=== PATIENT | female | born 1990 | race Caucasian/White ===

== ENCOUNTER 2018-09-26 15:25 | Emergency (ER) | payer BC, OTHER ==
[~2018-09-26] VITALS: Ht 160 cm; Wt 68.0 kg
[~2018-09-26 15:25] MED LIST: ACHD5005 PO; ACHYD1T PO; CPH250CIP PO; DCS100C PO; FERR-57 PO; FERR325T18 PO; FRS325T PO; IBP600T1 PO; IBUP-1773 PO; PREN1TAB71 PO; PREN1TAB86 PO
[2018-09-26] MEDS ORDERED: SULF-222 (15:32)
[2018-09-26] MEDS ORDERED: ESCI10TA55 (15:32)
--- OUTSIDE RECORDS SUMMARY | 2018-09-26 15:43 | XMS REPORT | Continuity of Care Document ---
Author Organization Unknown Address Unknown Allergies Active Description Code Type Severity Reaction Onset Reported/Identified Relationship to Patient Clinical Status Yes Penicillins [id number] Drug Allergy Unknown N/A 10/26/2012 Medications There is no data. Problems Date Dx Coded Attending Type Code Diagnosis Diagnosed By 10/26/2012 LIZZY RAYGOZA DO Ot 599.0 URIN TRACT INFECTION NOS 10/26/2012 LIZZY RAYGOZA DO Ot 646.63 INFECTION-ANTEPARTUM 10/30/2012 VILLA KOHLER DO Ot 285.1 AC POSTHEMORRHAG ANEMIA 10/30/2012 VILLA KOHLER DO, Ot 599.0 URIN TRACT INFECTION NOS 10/30/2012 VILLA KOHLER DO Ot 646.62 INFECTION-DELIV W P/P 10/30/2012 VILLA KOHLER DO Ot 648.22 ANEMIA-DELIVERED W P/P 10/30/2012 VILLA KOHLER DO Ot 659.71 ABN DEL FET HT RT/RHYTHM,W OR W/O MENTIO 10/30/2012 VILLA KOHLER DO Ot V27.0 DELIVER-SINGLE LIVEBORN 08/10/2015 VILLA KOHLER DO Ot D62 ACUTE POSTHEMORRHAGIC ANEMIA 08/10/2015 VILLA KOHLER DO Ot O34.21 MATERNAL CARE FOR SCAR FROM PREVIOUS SHONDA 08/10/2015 VILLA KOHLER DO Ot O90.81 ANEMIA OF THE PUERPERIUM 08/10/2015 VILLA KOHLER DO Ot Z23 ENCOUNTER FOR IMMUNIZATION 08/10/2015 VILLA KOHLER DO, Ot Z37.0 SINGLE LIVE 08/10/2015 VILLA KOHLER DO, Ot Z3A.38 38 WEEKS GESTATION OF Procedures Code Description Performed By Performed On 74.1 10/29/2012 [id number] 08/08/2015 [id number] 08/08/2015 Results There is no data. Encounters ACCT No. Visit Date/Time Discharge Status Pt. Type Provider Facility Loc./Unit Complaint [id number] 09/22/2018 17:10:00 09/22/2018 23:59:59 CLS Outpatient JOSTIN DAMON [facility] [id number] 08/08/2015 14:00:00 08/10/2015 13:15:00 DIS [facility] [id number] 10/28/2012 11:49:00 10/30/2012 15:50:00 DIS Inpatient VILLA KOHLER DO [facility] [id number] 10/26/2012 19:49:00 10/26/2012 22:00:00 DIS Outpatient [facility]
--- OUTSIDE RECORDS SUMMARY | 2018-09-26 15:43 | XMS REPORT | Continuity of Care Document ---
Author Author [facility] Organization [facility] Address Unknown Phone Unavailable Support Name Relationship Address Phone JEANETTE LYNN Next Of Kin [address] [facility] [place] [id number] Insurance Providers Payer Name Policy Number Subscriber Name Relationship [facility] [id number] Rhonda Lynn 01 Self / Same As Patient Medicaid [place] [id number] Rhonda Lynn 01 Self / Same As Patient Advance Directives Directive Response Recorded Date Advance Directives N 10/28/12 11:55am Health Care Power of Integration Solution Architect N 10/26/12 8:00pm Organ Donor Y 10/28/12 11:55am Problems No Known Problems or Medical conditions. Family History History Response Recorded Date/Time Hx Family Cancer N 10/28/12 1:18pm Hx Family Cardiac Disorders N 10/28/12 1:18pm Social History History Response Recorded Date/Time Alcohol Use Denies Use 10/28/12 1:16pm Recreational Drug Use N 10/28/12 1:16pm Recent Foreign Travel N 10/28/12 1:16pm Recent Infectious Disease Exposure N 10/28/12 1:16pm Hospitalization with Isolation Denies 10/30/12 6:06pm Sexually Transmitted Disease N 10/28/12 12:31pm Allergies, Adverse Reactions, Alerts Allergen Type Severity Reaction Last Updated Penicillins Allergy Unknown 10/26/12 Medications Medication Dose Units Route Sig Qty Days Docusate Sodium (Colace Cap) 100 Mg PO BID 60 Ferrous Sulfate (Feosol Tab) 325 Mg PO DAILY@0700 30 Ibuprofen (Motrin) 600 Mg PO Q6H PRN 40 Acetaminophen/Hydrocodone Bitart (Lorcet Plus 10/325 Mg) 1 Ea PO Q6HR PRN 30 Cephalexin Hcl (Keflex Capsule) 500 Mg PO QID 7 Ferrous Sulfate 325 Mg PO BID Vit/Fe Fumarate/Fa ( Vitamin Tablet) 1 Each PO DAILY Immunizations Name Given Type Date of Influenza Vaccine 12/27/11 H Response Recorded Date/Time Status not known Unknown Results Test Date Result Interp. Ref. Range Basophils # (Auto) October 28, 2012 12:25pm 0.0 10^3/uL N 0.0-0.1 Basophils (%) (Auto) October 28, 2012 12:25pm 0 % N 0-10 Eosinophils # (Auto) October 28, 2012 12:25pm 0.1 10^3/uL N 0.0-0.3 Eosinophils (%) (Auto) October 28, 2012 12:25pm 1 % N 0-10 Hematocrit October 28, 2012 12:25pm 38 % N 35-52 Hemoglobin October 28, 2012 12:25pm 12.9 G/DL N 11.5-16.0 Lymphocytes # (Auto) October 28, 2012 12:25pm 1.6 X 10^3 N 1.0-4.0 Lymphocytes (%) (Auto) October 28, 2012 12:25pm 8 % L 12-44 Mean Corpuscular Hemoglobin October 28, 2012 12:25pm 29 PG N 25-34 Mean Corpuscular Hemoglobin Concent October 28, 2012 12:25pm 34 G/DL N 32-36 Mean Corpuscular Volume October 28, 2012 12:25pm 84 FL N 80-99 Mean Platelet Volume October 28, 2012 12:25pm 11.6 FL H 7.4-10.4 Monocytes # (Auto) October 28, 2012 12:25pm 0.8 X 10^3 N 0.0-1.0 Monocytes (%) (Auto) October 28, 2012 12:25pm 4 % N 0-12 Neutrophils # (Auto) October 28, 2012 12:25pm 17.4 X 10^3 H 1.8-7.8 Neutrophils (%) (Auto) October 28, 2012 12:25pm 87 % H 42-75 Platelet Count October 28, 2012 12:25pm 268 10^3/uL N 130-400 Red Blood Count October 28, 2012 12:25pm 4.48 10^6/uL N 4.35-5.85 Red Cell Distribution Width October 28, 2012 12:25pm 13.4 % N 10.0-14.5 Urine Bacteria October 26, 2012 7:50pm LARGE /HPF H - Urine Bilirubin October 26, 2012 7:50pm NEGATIVE - Urine Casts October 26, 2012 7:50pm NONE /LPF - Urine Clarity October 26, 2012 7:50pm SLIGHTLY CLOUDY - Urine Color October 26, 2012 7:50pm YELLOW - Urine Crystals October 26, 2012 7:50pm NONE /LPF - Urine Culture Indicated October 26, 2012 7:50pm YES - Urine Glucose (UA) October 26, 2012 7:50pm NEGATIVE - Urine Ketones October 26, 2012 7:50pm NEGATIVE - Urine Leukocyte Esterase October 26, 2012 7:50pm 3+ H - Urine Mucus October 26, 2012 7:50pm NEGATIVE /LPF - Urine Nitrite October 26, 2012 7:50pm NEGATIVE - Urine Protein October 26, 2012 7:50pm NEGATIVE - Urine RBC October 26, 2012 7:50pm 0-2 /HPF - Urine Specific [place] October 26, 2012 7:50pm 1.010 L - Urine Urobilinogen October 26, 2012 7:50pm NORMAL MG/DL - Urine WBC October 26, 2012 7:50pm 50-100 /HPF H - Urine pH October 26, 2012 7:50pm 8 - White Blood Count October 28, 2012 12:25pm 19.9 10^3/uL H 4.3-11.0 Urine RBC (Auto) October 26, 2012 7:50pm 3+ H - Procedures Procedure Code Date Urine Culture 10/26/12 Encounters Encounter Location Date/Time Discharged Inpatient [facility] 10/28/12 11:49am
--- NOTE | 2018-09-26 16:01 | ED Integumentary General ---
General Chief Complaint: Skin/Wound Problems Stated Complaint: LT AXILLARY ABSCESS Nursing Triage Note: C/O redness under R arm over the weekend. reports going to urgent care on friday of this week and getting put on Bactrim DS. Source: patient Exam Limitations: no limitations History of Present Illness Date Seen by Provider: Sep 26, 2018 Time Seen by Provider: 15:59 Initial Comments Patient complains of tender red warm left axillary mass for the past week. She saw her doctor who prescribed Bactrim on Friday. It is only gotten worse. She has some drainage (yellow-green) from the area. He also has a low-grade fever. Allergies and Home Medications Allergies Coded Allergies: Penicillins (Verified Allergy, Unknown, 10/26/12) ALLERGY SMALL CHILD Home Medications Clindamycin HCl 300 Mg Capsule, 300 MG PO QID Prescribed by: ULICES CREWS on 09/26/18 1607 Patient Home Medication List Home Medication List Reviewed: Yes Review of Systems Review of Systems Constitutional: fever, malaise Respiratory: no symptoms reported Cardiovascular: no symptoms reported Skin: see HPI Past Vzdicks-Jgfarn-Zvuuqr Hx Patient Social History Alcohol Use: Denies Use Recreational Drug Use: No Smoking Status: Never a Smoker 2nd Hand Smoke Exposure: No Recent Foreign Travel: No Contact w/Someone Who Travel: No Recent Infectious Disease Expo: No Immunizations Up To Date Tetanus Booster (TDap): More than 5yrs PED Vaccines UTD: Yes Date of Influenza Vaccine: Dec 27, 2011 Past Medical History Surgeries: Yes Section Reproductive Disorders: No Sexually Transmitted Disease: No HIV/AIDS: No Psychosocial: Yes Anxiety Adverse Reaction/Blood Tranf: No Family Medical History Hypertension 19 FATHER 19 MOTHER G8 SISTER Physical Exam Vital Signs Vital Signs - First Documented 09/26/18 15:32 Temp 99.7 Pulse 76 Resp 16 B/P (MAP) 160/91 (114) Pulse Ox 98 Capillary Refill : Less Than 3 Seconds General Appearance: WD/WN, no apparent distress Neck: supple Cardiovascular: regular rate, rhythm Respiratory: lungs clear Extremities: normal range of motion, non-tender Neurologic/Psychiatric: alert, normal mood/affect Skin: normal color, warm/dry, other (tender red basketball sized area of fluctuance redness warmth and tenderness left axilla.) Procedures/Interventions I&D : Site: L axilla Blade Size: 11 Packing/Drain: Idoform 1/2 Progress Area of maximum fluctuance anesthetized with 1 percent lidocaine without epinephrine. Large amount of pus was aspirated with 18-gauge needle. Incision was widened to 2 cm draining pus. Wound packed with half-inch iodoform gauze. Patient tolerated procedure well. Progress/Results/Core Measures Results/Orders My Orders Orders - ULICES CREWS MD Ceftriaxone For Im Use (Rocephin For Im (09/26/18 16:15) Lidocaine 1% Inj 20 Ml (Xylocaine 1% Inj (09/26/18 16:15) Wound Culture (09/26/18 16:01) Medications Given in ED Current Medications Medications Dose Ordered Sig/Donna Route Start Time Stop Time Status Last Admin Dose Admin Ceftriaxone Sodium 1,000 mg ONCE ONCE IM 09/26/18 16:15 09/26/18 16:16 DC 09/26/18 16:12 1,000 MG Lidocaine HCl 2.1 ml ONCE ONCE INJ 09/26/18 16:15 09/26/18 16:16 DC 09/26/18 16:12 2.1 ML Vital Signs/I&O 09/26/18 09/26/18 15:32 16:30 Temp 99.7 99.7 Pulse 76 76 Resp 16 16 B/P (MAP) 160/91 (114) 124/62 (82) Pulse Ox 98 98 Blood Pressure Mean: 114 Departure Impression Primary Impression: Abscess Disposition: 01 HOME, SELF-CARE Condition: Stable Departure-Patient Inst. Decision time for Depature: 16:05 Referrals: NO,LOCAL PHYSICIAN (PCP) Primary Care Physician Patient Instructions: Abscess Incision and Drainage (DC) Add. Discharge Instructions: Sitz baths twice daily. Remove packing in 24 hours. Start new antibiotic today. All discharge instructions reviewed with patient and/or family. Voiced understanding. Scripts Clindamycin HCl (Clindamycin HCl) 300 Mg Capsule 300 MG PO QID, #28 CAP Prov: ULICES CREWS MD 09/26/18 ULICES CREWS MD Sep 26, 2018 16:01
[2018-09-26] MEDS ORDERED: CLIN300C11 PO (16:07)
[2018-09-26] MEDS ORDERED: LIDOCAINE 1% INJ 20 ML 20 ML VIAL INJ ONE (16:15)
[2018-09-26] MEDS ORDERED: cefTRIAXone 1,000 MG/2.86 ml vial (IM ONLY) IM ONE (16:15)
[2018-09-26 16:30] VITALS: BP 124/62
== END 2018-09-26 16:37 | disposition home or self-care (01) ==
LOC: EDUNIT# 15:25 → ER FS 15:27
DX: L02.412 Cutaneous abscess of left axilla (principal); F41.9 Anxiety disorder, unspecified; Z88.0 Allergy status to penicillin; Z82.49 Family history of ischemic heart disease and other diseases of the circulatory system
CPT/HCPCS: 87070; 87077; 87186; 87205; 96372